=== PATIENT | male | born 1995 | race Asian ===

== ENCOUNTER 2020-10-24 21:30 | Emergency (ER) | payer OTHER ==
[~2020-10-24] VITALS: Ht 182.9 cm; Wt 79.4 kg
[~2020-10-24 21:30] MED LIST: NAPROSYN500 MG PO; NORFLEX100 MG PO
[2020-10-24 21:38] VITALS: BP 125/70
== END 2020-10-24 22:12 | disposition home or self-care (01) ==
LOC: M.ERS 21:30
DX: S01.411A Laceration without foreign body of right cheek and temporomandibular area, initial encounter (principal); F17.210 Nicotine dependence, cigarettes, uncomplicated; W26.8XXA Contact with other sharp object(s), not elsewhere classified, initial encounter; Y93.89 Activity, other specified; Y92.89 Other specified places as the place of occurrence of the external cause; Y99.8 Other external cause status